=== PATIENT | male | born 1965 | race African-American/Black ===

== ENCOUNTER 2019-01-08 14:16 | Emergency (ER) | payer BC | END 2019-01-08 16:01 | disposition left against medical advice (07) | LOC: ERS 14:16 | DX: Z53.21 Procedure and treatment not carried out due to patient leaving prior to being seen by health care provider (principal) | CPT/HCPCS: 36416 ==

== ENCOUNTER 2019-04-08 16:05 | Emergency (ER) | payer BC, SELFPAY ==
[2019-04-08] MEDS ORDERED: Ketorolac Tromethamine 30 MG/ML VIAL ONE (16:52)
== END 2019-04-08 17:12 | disposition home or self-care (01) ==
LOC: ERS 16:05
DX: M10.9 Gout, unspecified (principal)
CPT/HCPCS: 96372; J1885

== ENCOUNTER 2019-04-29 11:53 | Emergency (ER) | payer BC, SELFPAY ==
[2019-04-29] MEDS ORDERED: Ketorolac Tromethamine 60 MG/2 ML VIAL ONE (12:36)
[2019-04-29 13:46] LABS: Bilirubin Negative (Negative); Blood, Urine Negative (Negative); Glucose, Urine (Dipstick) Negative (Negative); Leukocyte Negative (Negative); Nitrite Negative (Negative); Protein, Urine (Dipstick) 100 mg/dL (Neg-Trace)
[2019-04-29 13:48] LABS: Clarity Clear (Clear)
[2019-04-29 14:00] LABS: Bacteria/HPF None Seen HPF (None Seen); Hyaline Casts/LPF NONE SEEN LPF (0-3 Hyaline); RBC/HPF 0-3 HPF (0-3); Squamous Epithelial 0-3 HPF (0-3); WBC/HPF 0-3 HPF (0-3)
== END 2019-04-29 14:20 | disposition home or self-care (01) ==
LOC: ERS 11:53
DX: M54.5 Low back pain (principal); R80.9 Proteinuria, unspecified
CPT/HCPCS: 81003; 81015; 96372; J1885

== ENCOUNTER 2019-12-15 19:41 | Emergency (ER) | payer BC ==
[2019-12-15] MEDS ORDERED: Ketorolac Tromethamine 30 MG/ML VIAL ONE (21:18)
== END 2019-12-15 21:40 | disposition home or self-care (01) ==
LOC: ERS 19:41
DX: M10.9 Gout, unspecified (principal)
CPT/HCPCS: 96372; 99283; J1885

== ENCOUNTER 2020-04-26 12:17 | Emergency (ER) | payer BC ==
[~2020-04-26 12:17] MED LIST: Iopamidol-370 76% 500 ML 1 ML ONE
[2020-04-26 12:47] LABS: #Basophils 0.1 thou/uL (0.0-0.2); #Eosinphils 0.2 thou/uL (0.0-0.7); #Lymphocytes 2.5 thou/uL (1.20-3.40); #Monocytes 0.7 thou/uL (0.11-0.59); #Neutrophils 3.9 thou/uL (1.40-6.50); %Eosinophils 2.4 % (0.0-10.0); %Lymphocytes 33.7 % (21.0-51.0); %Monocytes 9.8 % (0.0-10.0); %Neutrophils 53.1 % (42.0-75.0); Hemoglobin 16.1 g/dL (14.0-18.0); Mean Corpuscular HGB CONC 33.1 g/dL (32.0-36.0); Mean Corpuscular Volume 81.6 fL (78.0-98.0); Mean Platelet Volume 9.3 fL (7.4-10.4); Platelet Count 185 thou/uL (130-400); RBC Distribution Width 11.2 % (11.5-14.5); Red Blood Cell (RBC) Count 5.96 mill/uL (4.70-6.10); White Blood Cell (WBC) Count 7.4 thou/uL (4.8-10.8)
[2020-04-26 13:08] LABS: ALT (SGPT) 33 U/L (8-55); AST (SGOT) 25 U/L (5-34); Albumin 4.3 g/dL (3.5-5.0); Alkaline Phosphatase 117 U/L (40-110); Anion Gap 14 mmol/L (10-20); BUN (Urea Nitrogen) 9 mg/dL (8.4-25.7); Bilirubin, Total 0.9 mg/dL (0.2-1.2); Calc. Creatinine Clearance 0 mL/min (70-130); Calcium 9.7 mg/dL (7.8-10.44); Carbon Dioxide 25 mmol/L (22-29); Chloride 101 mmol/L (98-107); Estimated GFR-MDRD 81; Glucose 134 mg/dL (70-105); Lipase 31 U/L (8-78); Potassium 3.6 mmol/L (3.5-5.1); Protein, Total 8.3 g/dL (6.0-8.3); Sodium 136 mmol/L (136-145)
[2020-04-26] MEDS ORDERED: Lorazepam 2 MG/ML VIAL ONE (14:20)
--- NOTE | 2020-04-26 15:17 | CT ---
CT abdomen and pelvis with IV contrast HISTORY: Upper abdomen pain. FINDINGS: Lung bases are clear. Nonspecific epicardial lymph node just anterior to the right ventricl e base. Heterogeneous area of relative increased density at the anterior dome of the left liver lobe is non-m asslike and favored to represent an area of normal density within an otherwise hypodense liver. Gallbladder surgically absent. A 1.5 cm splenule lies immediately anterior to the splenic body. No free air or free fluid. Urinary bladder is unremarkable. Appendix is not inflamed. Large amount of stool throughout the colon. Lipomatous hypertrophy of the i leocecal valve is noted. Degenerative changes of the lumbar spine. IMPRESSION : No acute abnormalities are demonstrated. Hepato-steatosis. Status post cholecystectomy. Constipation.
[2020-04-26] MEDS ORDERED: Ondansetron PF 4 MG/2 ML Vial ONE (15:49)
[2020-04-26] MEDS ORDERED: Acetaminophen 500 MG TAB ONE (16:18)
== END 2020-04-26 16:13 | disposition home or self-care (01) ==
LOC: ERS 12:17
DX: R10.12 Left upper quadrant pain (principal); R10.816 Epigastric abdominal tenderness; M10.9 Gout, unspecified; E11.9 Type 2 diabetes mellitus without complications; E78.00 Pure hypercholesterolemia, unspecified; I10 Essential (primary) hypertension; Z79.84 Long term (current) use of oral hypoglycemic drugs; Z79.899 Other long term (current) drug therapy
CPT/HCPCS: 36415; 74177; 80053; 83690; 85025; 96374; 96375; J2060; J2405; Q9967

== ENCOUNTER 2020-09-05 11:14 | Emergency (ER) | payer BC, OTHER ==
[2020-09-05 12:25] LABS: #Basophils 0.1 thou/uL (0.0-0.2); #Eosinphils 0.1 thou/uL (0.0-0.7); #Lymphocytes 2.2 thou/uL (1.20-3.40); #Monocytes 0.4 thou/uL (0.11-0.59); #Neutrophils 2.9 thou/uL (1.40-6.50); %Basophils 1.7 % (0.0-1.0); %Eosinophils 1.6 % (0.0-10.0); %Lymphocytes 38.5 % (21.0-51.0); %Monocytes 6.3 % (0.0-10.0); Hemoglobin 14.6 g/dL (14.0-18.0); Mean Corpuscular HGB CONC 34.7 g/dL (32.0-36.0); Mean Corpuscular Hemoglobin 27.5 pg (27.0-31.0); Mean Corpuscular Volume 79.4 fL (78.0-98.0); Mean Platelet Volume 11.3 fL (7.4-10.4); Platelet Count 139 thou/uL (130-400); RBC Distribution Width 10.9 % (11.5-14.5); Red Blood Cell (RBC) Count 5.29 mill/uL (4.70-6.10); White Blood Cell (WBC) Count 5.6 thou/uL (4.8-10.8)
[2020-09-05 12:30] LABS: ALT (SGPT) 53 U/L (8-55); AST (SGOT) 34 U/L (5-34); Albumin 3.7 g/dL (3.5-5.0); Alkaline Phosphatase 151 U/L (40-110); Anion Gap 12 mmol/L (10-20); BUN (Urea Nitrogen) 23 mg/dL (8.4-25.7); Bilirubin, Total 0.5 mg/dL (0.2-1.2); CK (CPK) 69 U/L (30-200); Calc. Creatinine Clearance 0 mL/min (70-130); Calcium 9.9 mg/dL (7.8-10.44); Carbon Dioxide 23 mmol/L (22-29); Chloride 100 mmol/L (98-107); Estimated GFR-MDRD 60; Globulin 3.5 g/dL (2.4-3.5); Glucose 419 mg/dL (70-105); Lipase 105 U/L (8-78); Potassium 4.3 mmol/L (3.5-5.1); Protein, Total 7.2 g/dL (6.0-8.3); Sodium 131 mmol/L (136-145)
--- NOTE | 2020-09-05 12:32 | RAD ---
RADIOGRAPH CHEST 1 VIEW: DATE: 09/05/2020 HISTORY: 55-year-old female with dyspnea and hyperglycemia FINDINGS: There are no airspace densities, pulmonary edema, pneumothorax, or cardiomegaly. The lateral costophr enic angles are sharp. IMPRESSION: No acute cardiopulmonary findings.
--- NOTE | 2020-09-05 13:52 | CT ---
EXAM: CT angiogram of the chest including 3-D rendering: HISTORY: Dyspnea elevated d-dimer COMPARISON: None FINDINGS: There is adequate opacification of the pulmonary arteries. No evidence for aortic aneurysm or dissection. No convincing CT evidence for acute pulmonary embolism. No significant acute pulmonary parenchymal process. No evidence for mediastinal mass or adenopathy. No evidence for pleural or pericardial effusion. The visualized upper abdomen is unremarkable. IMPRESSION: No convincing CT evidence for acute pulmonary embolism.
== END 2020-09-05 14:18 | disposition home or self-care (01) ==
LOC: ERS 11:14
DX: E11.65 Type 2 diabetes mellitus with hyperglycemia (principal); M10.9 Gout, unspecified; E78.00 Pure hypercholesterolemia, unspecified; I10 Essential (primary) hypertension; Z79.899 Other long term (current) drug therapy; Z79.84 Long term (current) use of oral hypoglycemic drugs
CPT/HCPCS: 36416; 71045; 71275; 80053; 82550; 83690; 83880; 84484; 85025; 85379; 93005; Q9967

== ENCOUNTER 2020-10-15 10:34 | Emergency (ER) | payer OTHER ==
[2020-10-15 11:43] LABS: Bicarbonate (HCO3v) 28.4 mmol/L (22.0-28.0); CO2 Tension (PvCO2) 54.2 mmHg (40.0-50.0); Calcium, Ionized 1.18 mmol/L (1.15-1.33); Chloride 95 mmol/L (98-107); Hemoglobin - Calc 16.5 g/dL (14.0-18.0); Potassium 4.2 mmol/L (3.5-5.1); Sodium 133 mmol/L (138-145); vO2 Saturation-calc 58.1 % (60.0-85.0)
[2020-10-15 11:48] LABS: #Eosinphils 0.1 thou/uL (0.0-0.7); #Lymphocytes 1.4 thou/uL (1.20-3.40); #Monocytes 0.3 thou/uL (0.11-0.59); %Basophils 0.8 % (0.0-1.0); %Eosinophils 1.3 % (0.0-10.0); %Lymphocytes 28.6 % (21.0-51.0); %Monocytes 6.3 % (0.0-10.0); Hemoglobin 15.3 g/dL (14.0-18.0); Mean Corpuscular HGB CONC 34.4 g/dL (32.0-36.0); Mean Corpuscular Hemoglobin 27.6 pg (27.0-31.0); Mean Corpuscular Volume 80.3 fL (78.0-98.0); Mean Platelet Volume 10.7 fL (7.4-10.4); Platelet Count 146 thou/uL (130-400); RBC Distribution Width 10.8 % (11.5-14.5); Red Blood Cell (RBC) Count 5.54 mill/uL (4.70-6.10); White Blood Cell (WBC) Count 4.7 thou/uL (4.8-10.8)
[2020-10-15 12:06] LABS: ALT (SGPT) 65 U/L (8-55); AST (SGOT) 36 U/L (5-34); Albumin 4.1 g/dL (3.5-5.0); Alkaline Phosphatase 216 U/L (40-110); Anion Gap 14 mmol/L (10-20); BUN (Urea Nitrogen) 22 mg/dL (8.4-25.7); Bilirubin, Total 0.5 mg/dL (0.2-1.2); Calc. Creatinine Clearance 0 mL/min (70-130); Calcium 9.8 mg/dL (7.8-10.44); Carbon Dioxide 29 mmol/L (22-29); Chloride 94 mmol/L (98-107); Globulin 3.7 g/dL (2.4-3.5); Potassium 4.2 mmol/L (3.5-5.1); Protein, Total 7.8 g/dL (6.0-8.3); Sodium 133 mmol/L (136-145)
--- NOTE | 2020-10-15 12:06 | RAD ---
XR Chest 1 View Portable History: Fall Comparison: Radiograph September 05, 2020 Findings: Lungs are clear. No pneumothorax or effusion. Cardiac silhouette and mediastinal contours a re within normal limits. No acute osseous abnormality. Impression: No acute intrathoracic abnormality.
[2020-10-15 12:15] LABS: Glucose 660 mg/dL (70-105)
[2020-10-15] MEDS ORDERED: Insulin Regular 300 UNITS/3 ML VIAL ONE (12:21)
[2020-10-15 14:12] LABS: Bilirubin Negative (Negative); Blood, Urine Negative (Negative); Clarity Clear (Clear); Glucose, Urine (Dipstick) Greater than 1000 mg/dL (Negative); Ketone, Urine Negative (Negative); Leukocyte Negative Leu/uL (Negative); Nitrite Negative (Negative); Protein, Urine (Dipstick) Negative (Neg-Trace); Specific Gravity, Urine 1.024 (1.002-1.036); Urobilinogen Normal mg/dL (Less than 2); pH, Urine 5.5 (5.0-9.0)
== END 2020-10-15 14:05 | disposition home or self-care (01) ==
LOC: ERS 10:34
DX: S01.81XA Laceration without foreign body of other part of head, initial encounter (principal); E11.65 Type 2 diabetes mellitus with hyperglycemia; M10.9 Gout, unspecified; E78.00 Pure hypercholesterolemia, unspecified; I10 Essential (primary) hypertension; Z85.46 Personal history of malignant neoplasm of prostate; Z79.84 Long term (current) use of oral hypoglycemic drugs; Z79.899 Other long term (current) drug therapy; W01.0XXA Fall on same level from slipping, tripping and stumbling without subsequent striking against object, initial encounter
CPT/HCPCS: 12011; 36416; 71045; 80053; 81003; 82010; 82330; 82803; 84484; 85025; 87086; J1815